=== PATIENT | female | born 1955 | race Caucasian/White ===

== ENCOUNTER 2021-02-15 13:47 | Emergency (ER) | payer MEDICARE, BC ==
--- NOTE | 2021-02-15 13:58 | EDM.PDOC ---
ED HPI GENERAL MEDICAL PROBLEM - General Chief Complaint: Head Injury Stated Complaint: FELL, HURT LEFT SHOULDER Time Seen by Provider: 02/15/21 13:54 Source of Information: Reports: Patient History Limitations: Reports: No Limitations - History of Present Illness INITIAL COMMENTS - FREE TEXT/NARRATIVE: Patient is a 65-year-old female who presents today for a fall from standing. Patient takes Eliquis for previous stroke. Patient that she lost her footing and landed on her left shoulder and also that she may have hit her head. Patient did not pass out. This happened almost 2 hours ago. Patient is has pain in left shoulder whenever she moves it is achy feeling. Keep in arm immobilized makes the pain better. Patient not take any meds for the pain. Patient denies any numbness tingling to the arm. Patient denies any confusion vision changes or other complaints. left shoulder Pain Score (Numeric/FACES): 3 - Related Data Allergies Allergy/AdvReac Type Severity Reaction Status Date / Time promethazine [From Phenergan] Allergy Rash Verified 02/15/21 14:44 Home Meds: Home Meds Gabapentin [Neurontin] 300 mg PO QID 11/25/15 [History] Sertraline [Zoloft] 25 mg PO BEDTIME 11/25/15 [History] Past Medical History HEENT History: Reports: None Cardiovascular History: Reports: Afib, Blood Clots/VTE/DVT Other Cardiovascular History: states had blood clot to rt lower pelvis after debulking Respiratory History: Reports: None Gastrointestinal History: Reports: None Musculoskeletal History: Reports: None Neurological History: Reports: Neuropathy, Peripheral Psychiatric History: Reports: Depression Endocrine/Metabolic History: Reports: None Hematologic History: Reports: None Immunologic History: Reports: None Oncologic (Cancer) History: Reports: Ovarian Dermatologic History: Reports: None - Past Surgical History Female Surgical History: Reports: Hysterectomy, Salpingo-Oophorectomy, Tubal Ligation Review of Systems - Review of Systems Review Of Systems: See Below Constitutional: Reports: No Symptoms Eyes: Reports: No Symptoms Ears: Reports: No Symptoms Nose: Reports: No Symptoms Mouth/Throat: Reports: No Symptoms Respiratory: Reports: No Symptoms Cardiovascular: Reports: No Symptoms GI/Abdominal: Reports: No Symptoms Genitourinary: Reports: No Symptoms Musculoskeletal: Reports: Shoulder Pain Skin: Reports: No Symptoms Neurological: Reports: No Symptoms Psychiatric: Reports: No Symptoms ED EXAM, GENERAL - Physical Exam Exam: See Below Exam Limited By: No Limitations General Appearance: Alert, WD/WN, No Apparent Distress Eye Exam: Bilateral Eye: EOMI, PERRL Nose: Normal Inspection Throat/Mouth: Normal Inspection Head: Atraumatic, Normocephalic Respiratory/Chest: No Respiratory Distress, Lungs Clear, Normal Breath Sounds Cardiovascular: Normal Peripheral Pulses, Regular Rate, Rhythm GI/Abdominal: Normal Bowel Sounds, Soft, Non-Tender Extremities: Normal Inspection, Normal Range of Motion Neurological: Alert, Oriented Course - Vital Signs Last Recorded V/S: Last Vital Signs Temp 98.6 F 02/15/21 13:47 Pulse 56 L 02/15/21 13:47 Resp 18 02/15/21 13:47 BP 151/60 H 02/15/21 13:47 Pulse Ox 96 02/15/21 13:47 - Orders/Labs/Meds Orders: Active Orders 24 hr Category Date Time Status DME for Discharge [COMM] Stat Oth 02/15/21 14:37 Ordered - Re-Assessments/Exams Free Text/Narrative Re-Assessment/Exam: 02/15/21 14:47 CT head negative but does have a humerus fracture. Patient be placed in a sling and follow-up with orthopedics. What you are ordering Left arm sling Why you are ordering it Pain control with immobilization left humerus fracture How it will benefit patient Control and mobilization How long is patient to use it 1421 days Departure - Departure Time of Disposition: 14:47 Disposition: Home, Self-Care 01 Condition: Good Clinical Impression: Fracture, humerus, great tuberosity - Discharge Information *PRESCRIPTION DRUG MONITORING PROGRAM REVIEWED*: Not Applicable *COPY OF PRESCRIPTION DRUG MONITORING REPORT IN PATIENT VLADIMIR: Not Applicable Instructions: Humerus Fracture Treated With Immobilization Referrals: PCP,None [Primary Care Provider] - Forms: ED Department Discharge Additional Instructions: The following information is given to patients seen in the emergency department who are being discharged to home. This information is to outline your options for follow-up care. We provide all patients seen in our emergency department with a follow-up referral. The need for follow-up, as well as the timing and circumstances, are variable depending upon the specifics of your emergency department visit. If you don't have a primary care physician on staff, we will provide you with a referral. We always advise you to contact your personal physician following an emergency department visit to inform them of the circumstance of the visit and for follow-up with them and/or the need for any referrals to a consulting specialist. The emergency department will also refer you to a specialist when appropriate. This referral assures that you have the opportunity for follow-up care with a specialist. All of these measure are taken in an effort to provide you with optimal care, which includes your follow-up. Under all circumstances we always encourage you to contact your private physician who remains a resource for coordinating your care. When calling for follow-up care, please make the office aware that this follow-up is from your recent emergency room visit. If for any reason you are refused follow-up, please contact the [facility] Emergency Department at and asked to speak to the emergency department charge nurse. Please follow up with your primary care physician. If you do not have a primary care physician, see below: [facility] [address], [address] [place] [address] [facility] [email or web address] You were seen today after fall. Your left arm has a humerus fracture in the greater tuberosity. These most times not require surgery have been shown to follow-up orthopedic. Above numbers acute can call to schedule appointment. The number Vicky are not always available if he cannot get an appointment please try to call Alyssa my not and tell them that you are in the ER. If you have any numbness with states that arm please return to ED immediately. Sepsis Event Note (ED) - Focused Exam Vital Signs: Vital Signs Temp Pulse Resp BP Pulse Ox 02/15/21 13:47 98.6 F 56 L 18 151/60 H 96 - My Orders Last 24 Hours: My Active Orders 02/15/21 14:37 DME for Discharge [COMM] Stat - Assessment/Plan Last 24 Hours: My Active Orders 02/15/21 14:37 DME for Discharge [COMM] Stat Plan: Patient is a 59-year-old female was brought in as a trauma alert. Patient was drawn because of fall on blood thinners. Patient is ANO x3 has no signs of head trauma but is unsure if she hit her head. Patient was intact bilateral breath sound circulation is good. Patient has some tenderness to the left upper shoulder. Will obtain CT head x-ray and reassess.
--- NOTE | 2021-02-15 14:23 | CT ---
INDICATION: Fall on blood thinners TECHNIQUE: CT head without contrast. COMPARISON: None FINDINGS: CSF spaces: Within normal limits for age. Brain parenchyma: The umaña-white differentiation is normal. No sign of mass, hemorrhage, or midline shift. Skull base and calvarium: The visualized paranasal sinuses and mastoid air cells demonstrate no acute or significant findings. The visualized orbits are grossly unremarkable. No skull fractures. IMPRESSION: Atraumatic appearance of the brain. Please note that all CT scans at this facility use dose modulation, iterative reconstruction, and/or weight-based dosing when appropriate to reduce radiation dose to as low as reasonably achievable. Dictated by Jason Kolb MD @ 02/15/2021 2:21:[address] Jason Kolb @ Feb 15 2021 2:21PM
--- NOTE | 2021-02-15 14:25 | CR ---
Indication: Fall from standing Technique: Two views left shoulder Comparison: None Findings: Bones: Minimally displaced fracture of the greater tuberosity of the left humerus. Joint spaces: Unremarkable. Soft tissues: Unremarkable. Impression: Minimally displaced fracture of the greater tuberosity of left humerus. Dictated by Conchita Prieto MD @ 02/15/2021 2:24:[address] Conchita Prieto @ Feb 15 2021 2:24PM
--- NOTE | 2021-02-15 14:28 | CR ---
INDICATION: Trauma TECHNIQUE: Chest 1 view. COMPARISON: None FINDINGS: Cardiovascular and mediastinum: Heart size and vasculature are normal in caliber and appearance. Mediastinum is within normal limits. Right-sided rivka catheter tip in the distal SVC. Lungs and pleural space: Lungs are clear. No sign of infiltrate or mass. No sign of pleural effusion. No pneumothorax. Bones and soft tissues: No significant findings. IMPRESSION: Unremarkable chest. Dictated by Jason Kolb MD @ 02/15/2021 2:26:[address] Jason Kolb @ Feb 15 2021 2:26PM
[2021-02-15 16:25] VITALS: BP 141/72; PULSE 62
== END 2021-02-15 15:03 | disposition home or self-care (01) ==
LOC: MW.ED 13:47
DX: S42.252A Displaced fracture of greater tuberosity of left humerus, initial encounter for closed fracture (principal); I48.91 Unspecified atrial fibrillation; G62.9 Polyneuropathy, unspecified; Z79.01 Long term (current) use of anticoagulants; Z88.8 Allergy status to other drugs, medicaments and biological substances; Z79.899 Other long term (current) drug therapy; Z86.718 Personal history of other venous thrombosis and embolism; W18.30XA Fall on same level, unspecified, initial encounter
CPT/HCPCS: 70450; 70450-26; 71045; 71045-26; 73030-26-LT; 73030-LT; 99284-25